=== PATIENT | female | born 1950 | race Caucasian/White ===

== ENCOUNTER → 2017-12-15 | Outpatient (CLI) | payer MEDICARE ==
--- NOTE | 2017-12-18 09:59 | MM ---
Reason for exam: screening (asymptomatic). Last mammogram was performed 2 years and 7 months ago. History: Patient is postmenopausal and is nulliparous. Family history of breast cancer in maternal aunt. Benign MG stereo VAD BX RT of the right breast, September 23, 2014. Benign US biopsy breast VAD RT of the right breast, September 23, 2014. Physical Findings: A clinical breast exam by your physician is recommended on an annual basis and results should be correlated with mammographic findings. MG 3D Screening Mammo W/Cad Bilateral CC and MLO view(s) were taken. Prior study comparison: May 21, 2015, right breast MG 3d diag mammo w/cad RT. September 23, 2014, right breast MG diagnostic mammo RT wo CAD. No significant changes when compared with prior studies. ASSESSMENT: Benign, BI-RAD 2 RECOMMENDATION: Routine screening mammogram of both breasts in 1 year.
== END | disposition home or self-care (01) ==
LOC: RADMAMWWP 15:01
PROVIDERS: ATTEND Internal Medicine
DX: Z12.31 Encounter for screening mammogram for malignant neoplasm of breast (principal)
CPT/HCPCS: 77063; 77067

== ENCOUNTER → 2021-04-20 | Outpatient (CLI) | payer MEDICARE | END | disposition home or self-care (01) | LOC: LABWHC1 15:33 | PROVIDERS: ATTEND Internal Medicine | DX: Z20.822 Contact with and (suspected) exposure to COVID-19 (principal) | CPT/HCPCS: U0003; C9803; U0005 ==

== ENCOUNTER → 2023-10-25 | Outpatient (CLI) | payer MEDICARE ==
--- NOTE | 2023-10-25 12:45 | NM ---
EXAMINATION TYPE: NM stress cardiolite complete DATE OF EXAM: 10/25/2023 COMPARISON: NONE CLINICAL INDICATION: Female, 73 years old with history of I10 BENIGN ESS HTN R07.89 CHEST PRESSURE; TECHNIQUE: After the intravenous administration of 10.5 mCi Tc 99m Sestamibi - Rest images obtained 80 minutes post injection. The patient exercised using a IONA protocol and 1 minute prior to peak exercise was injected with 25.2 mCi Tc 99m Sestamibi - Stress images obtained 30 minutes post injecti on. FINDINGS: Targeted heart rate was achieved during performance of the study. Review of stress and rest SPECT valdemar ges demonstrates no distinct perfusion abnormality. Gated analysis shows normal wall motion with an estimated left ventricular ejection fraction of 67 %. IMPRESSION: No scintigraphic evidence for reversible ischemia
--- NOTE | 2023-10-25 13:41 | CA ---
Exercise Nuclear Stress Test Report Name: Soheila Villela Exam Date: 10/25/2023 10:24 Exam Location: [facility] Ht (in): 64 Wt (lb): 158 BSA: 1.77 Ordering Phys: German Zavala MD Referring Phys: German Zavala MD Technologist: Fabio Hodge Age: 73 Gender: F : 1950 Procedure CPT: Indications: I10 BENIGN ESS HTN R07.89 CHEST PRESSURE ICD-10 Codes: Patient History: Medications: LISINOPRIL,,,,,, LEVOTHYROXINE,,,,,, OMEPRAZOLE,,,,, Meds past 24 hrs: Pretest Chest Pain: STRESS TEST Sunil Protocol Exercise Duration (min:sec): 03:[address] Depressions (mm): Angina Score: Dean Score: Resting HR (bpm): 92 Peak HR (bpm): 156 Resting BP (mmHg): 144 / 88 Peak BP (mmHg): 165 / 98 MPHR: 147 Target HR: 125 % MPHR: 106 METS: 4.6 Total Dose: Peak Dose: Atropine: Double Product: 45740 BP Response: Stress Termination: MAX EXERTION/TARGET HR Stress Symptoms: DIFFICULTY IN BREATHING Stress Summary: ECG ANALYSIS Resting ECG: Stress ECG: CONCLUSIONS Her exercise tolerance Normal electrocardiogram in response to exercise Dr. Kervin Guthrie MD (Electronically Signed) Final Date: 25 October 2023 13:40
== END | disposition home or self-care (01) ==
LOC: RADNMMAIN 08:07
PROVIDERS: ATTEND Family Medicine
DX: I10 Essential (primary) hypertension (principal); R07.89 Other chest pain
CPT/HCPCS: 93017; 78452; A9500

== ENCOUNTER 2024-06-24 12:01 | Emergency (ER) | payer MEDICARE ==
--- NOTE | 2024-06-24 12:19 | ED ---
General Adult HPI - General Chief complaint: Neuro Symptoms/Deficit Stated complaint: NEURO SYMP Time Seen by Provider: 06/24/24 12:12 Source: patient, family, RN notes reviewed Mode of arrival: ambulatory Limitations: no limitations - History of Present Illness Initial comments: Patient is a 74-year-old female presenting to the emergency department for facial weakness. Onset of symptoms was 4 days ago and has progressively worsened since that time. Patient states she is having difficulty shutting her left eye. Patient states there may be some facial weakness however is not clear. Patient states there is some mild paresthesia. - Related Data Allergies Allergy/AdvReac Type Severity Reaction Status Date / Time No Known Allergies Allergy Verified 06/24/24 12:06 Review of Systems ROS Statement: Those systems with pertinent positive or pertinent negative responses have been documented in the HPI. ROS Other: All systems not noted in ROS Statement are negative. Constitutional: Denies: fever Eyes: Reports: as per HPI ENT: Denies: ear pain Respiratory: Denies: dyspnea Cardiovascular: Denies: chest pain Neurological: Reports: as per HPI. Denies: headache, confusion, abnormal gait, vertigo Past Medical History Past Medical History: Hypertension, Thyroid Disorder History of Any Multi-Drug Resistant Organisms: None Reported Past Surgical History: No Surgical Hx Reported Past Psychological History: No Psychological Hx Reported Smoking Status: Never smoker Past Alcohol Use History: Occasional Past Drug Use History: None Reported General Exam Limitations: no limitations General appearance: alert, in no apparent distress Head exam: Present: atraumatic, normocephalic Eye exam: Present: PERRL, EOMI ENT exam: Present: normal oropharynx Neck exam: Present: normal inspection Respiratory exam: Present: normal lung sounds bilaterally Cardiovascular Exam: Present: regular rate, normal rhythm GI/Abdominal exam: Present: soft. Absent: tenderness Extremities exam: Present: normal inspection Neurological exam: Present: alert, oriented X3, other (Unable to fully shut left eyelid. Minimal left facial weakness that includes forehead, sensation intact.) Expanded Neurological exam: Present: protecting the airway Speech: Present: fluid speech Cranial nerves: EOM's Intact: Normal, Facial Sensation: Normal Sensory exam: Upper Extremity Light Touch: Normal, Lower Extremity Light Touch: Normal Motor strength exam: RUE: 5, LUE: 5, RLE: 5, LLE: 5 Eye Response: (4) open spontaneously Motor Response: (6) obeys commands Verbal Response: (5) oriented Psychiatric exam: Present: normal affect, normal mood Skin exam: Present: normal color Course Vital Signs 06/24/24 06/24/24 06/24/24 12:02 12:32 15:32 Temperature 97.8 F 98.0 F 97.9 F Pulse Rate 68 70 68 Respiratory 18 16 16 Rate Blood Pressure 179/105 159/89 169/94 O2 Sat by Pulse 98 94 L 96 Oximetry EKG Findings - EKG Results: EKG: interpreted by LAYNED, sinus rhythm, normal axis, normal QRS, normal ST/T Medical Decision Making - Medical Decision Making Was pt. sent in by a medical professional or institution (, PA, MASKING MACHINE OPERATOR, urgent care, hospital, or [facility]...) When possible be specific @ -No Did you speak to anyone other than the patient for history (EMS, parent, family, police, friend...)? What history was obtained from this source @ - is present helps provide history including he does not feel the patient has any facial weakness except for left eyelid Did you review nursing and triage notes (agree or disagree)? Why? @ -I reviewed and agree with nursing and triage notes Were old charts reviewed (outside hosp., previous admission, EMS record, old EKG, old radiological studies, urgent care reports/EKG's, [facility] records)? Report findings @ -No old charts were reviewed Differential Diagnosis (chest pain, altered mental status, abdominal pain women, abdominal pain men, vaginal bleeding, weakness, fever, dyspnea, syncope, headache, dizziness, GI bleed, back pain, seizure, CVA, palpatations, mental health, musculoskeletal)? @ -Differential Weakness: Hypoglycemia, shock, sepsis, hyponatremia, anemia, infection, CT, ETOH, adverse medicine reaction, overdose, stroke, this is not meant to be an all-inclusive list. EKG interpreted by me (3pts min.). @ -As above X-rays interpreted by me (1pt min.). @ -None done CT interpreted by me (1pt min.). @ -CT scan of the brain shows left frontal mass with some calcification up to 3.7 cm. U/S interpreted by me (1pt. min.). @ -None done What testing was considered but not performed or refused? (CT, X-rays, U/S, labs)? Why? @ -None What meds were considered but not given or refused? Why? @ -None Did you discuss the management of the patient with other professionals (professionals i.e. , PA, MASKING MACHINE OPERATOR, lab, RT, psych nurse, social media marketing manager, electric power line repairer, teacher, gunnery/ordnance officer, case briefer)? Give summary @ -Case discussed with neurology Dr. Champion who recommends Keppra and transfer to neurosurgery. Case also discussed with Dr. Goldman at [facility] who will accept transfer Was smoking cessation discussed for >3mins.? @ -No Was critical care preformed (if so, how long)? @ -No Were there social determinants of health that impacted care today? How? (Homelessness, low income, unemployed, alcoholism, drug addiction, transportation, low edu. Level, literacy, decrease access to med. care, snf, rehab)? @ -No Was there de-escalation of care discussed even if they declined (Discuss DNR or withdrawal of care, Hospice)? DNR status @ -No What co-morbidities impacted this encounter? (DM, HTN, Smoking, COPD, CAD, Cancer, CVA, ARF, Chemo, Hep., AIDS, mental health diagnosis, sleep apnea, morbid obesity)? @ -None Was patient admitted / discharged? Hospital course, mention meds given and route, prescriptions, significant lab abnormalities, going to OR and other pertinent info. @ -Patient presents with concerns for right-sided paresthesia and eyelid twitching however left eyelid weakness on exam. CT findings concerning for mass that could represent meningioma versus other. Patient has odd presentation. Patient will be transferred for further evaluation and possible treatment. Undiagnosed new problem with uncertain prognosis? @ -No Drug Therapy requiring intensive monitoring for toxicity (Heparin, Nitro, Insulin, Cardizem)? @ -No Were any procedures done? @ -No Diagnosis/symptom? @ -Brain mass, facial weakness Acute, or Chronic, or Acute on Chronic? @ -, Acute, acute Uncomplicated (without systemic symptoms) or Complicated (systemic symptoms)? @ -Default Side effects of treatment? @ -No Exacerbation, Progression, or Severe Exacerbation? @ -No Poses a threat to life or bodily function? How? (Chest pain, USA, CT, pneumonia, PE, COPD, DKA, ARF, appy, cholecystitis, CVA, Diverticulitis, Homicidal, Suicidal, threat to staff... and all critical care pts) @ -Threat to neurological function Disposition Clinical Impression: Brain mass, Facial weakness Disposition: OTHER INSTITUTION NOT DEFINED Is patient prescribed a controlled substance at d/c from ED?: No Referrals: German Zavala MD [Primary Care Provider] - 1-2 days Time of Disposition: 15:59 - Out of Hospital Transfer - Req. Specs Out of Hospital Transfer - Requested Specifics: Other Emergency Center
--- NOTE | 2024-06-24 13:52 | CT ---
EXAMINATION TYPE: CT brain wo con CT DLP: 1096 mGycm, Automated exposure control for dose reduction was used. DATE OF EXAM: 06/24/2024 1:40 PM COMPARISON: None. CLINICAL INDICATION:Female, 74 years old with history of weak, Weakness TECHNIQUE: Brain: Multiple axial CT images of the brain were obtained without IV contrast. . Coronal and sagitta l reformats reviewed. FINDINGS: Brain: Extra-axial spaces: No abnormal extra-axial fluid collections. Left frontal extra-axial heterogenous predominantly peripheral calcified mass measuring 3.0 x 2.4 x 3.7 cm (series 201, image 26). No disti nct surrounding vasogenic edema. No discrete dural tail identified. Ventricular system: Within normal limits Cerebral parenchyma: No acute intraparenchymal hemorrhage. The stock-white junction is well differenti ated. Cerebellum: Unremarkable. Mass effect: No evidence of midline shift. Intracranial vasculature: unremarkable Soft tissues: Normal. Calvarium/osseous structures: No depressed skull fracture. Paranasal sinuses and mastoid air cells: Clear Visualized orbits: Orbital contents are intact. IMPRESSION: 1. No acute intracranial bleed. 2. Left frontal extra-axial partially calcified 3.7 cm mass. No distinct surrounding vasogenic edema . Possibly representing a meningioma versus other etiologies. Further evaluation with MRI brain with and without IV contrast is recommended. [facility], , 06/24/2024 1:50 PM
[2024-06-24 16:14] LABS: Basophils % (A) 0 %; Eosinophils # (A) 0.2 k/uL (0-0.7); Eosinophils % (A) 3 %; HCT 41.4 % (34.0-46.0); HGB 13.6 gm/dL (11.4-16.0); Lymphocytes # (A) 2.3 k/uL (1.0-4.8); Lymphocytes % (A) 31 %; MCH 30.2 pg (25.0-35.0); MCHC 32.9 g/dL (31.0-37.0); MCV 91.8 fL (80.0-100.0); Monocytes # (A) 0.5 k/uL (0-1.0); Monocytes % (A) 7 %; Neutrophils # (A) 4.2 k/uL (1.3-7.7); Neutrophils % (A) 57 %; Platelet Count 259 k/uL (150-450); RBC 4.51 m/uL (3.80-5.40); RDW 12.7 % (11.5-15.5); WBC 7.3 k/uL (3.8-10.6)
[2024-06-24] MEDS: levETIRAcetam IV 500 MG/5 ML VIAL IVP STA (16:14)
[2024-06-24 16:27] LABS: ALT 29 U/L (4-34); AST 30 U/L (14-36); African American GFR (CKD) >90 (>60 ml/min/1.73 sqM); Albumin 4.4 g/dL (3.5-5.0); Alkaline Phosphatase 71 U/L (38-126); Anion Gap 7 mmol/L; Blood Urea Nitrogen 17 mg/dL (7-17); Calcium 9.5 mg/dL (8.4-10.2); Carbon Dioxide 25 mmol/L (22-30); Chloride 107 mmol/L (98-107); Glucose 90 mg/dL (74-99); Non-African American GFR(CKD) 81 (>60 ml/min/1.73 sqM); Potassium 3.9 mmol/L (3.5-5.1); Sodium 139 mmol/L (137-145); Total Bilirubin 0.6 mg/dL (0.2-1.3); Total Protein 7.3 g/dL (6.3-8.2)
[2024-06-24 16:34] LABS: INR 0.9 (<1.2); Partial Thromboplastin Time 26.3 sec (22.0-30.0); Prothrombin Time 9.9 sec (10.0-12.5)
[2024-06-24 17:06] VITALS: BP 174/87; PULSE 84; RESP 20; TEMP 97.5
== END 2024-06-24 16:40 | disposition other institution (70) ==
LOC: EC 12:01
DX: G93.9 Disorder of brain, unspecified (principal); R29.810 Facial weakness
CPT/HCPCS: 36415; 80053; 85025; 85610; 85730; 70450; 99285; 96374; J1953